=== PATIENT | female | born 1980 | race Caucasian/White ===

== ENCOUNTER 2020-01-09 11:41 | Inpatient (IN) | payer BC ==
--- NOTE | 2020-01-09 11:51 | ED ---
General Adult HPI - General Source: patient, EMS, RN notes reviewed Mode of arrival: EMS Limitations: no limitations <Rodolfo Angeles - Last Filed: 01/09/20 11:56> <Mauricio Jaramillo - Last Filed: 01/09/20 12:22> - General Stated complaint: abd pain Time Seen by Provider: 01/09/20 11:43 - History of Present Illness Initial comments: 39-year-old female presents emergency Department for [facility] as a transfer for an infected right ureteral calculi. Patient states that she's had pain for last couple days states that he was wrapping around her side. She states that she had hot and cold flashes a temp at home. Patient found to be febrile in the emergency department. Patient was given antibiotics [address] shows evidence of a 1 cm proximal right ureter stone. Patient's pain is improved after IV pain meds given by prior hospital. Patient has no history of stones. Patient denies any other complaints at this time no complaints of dysuria or noted hematuria states she does have some frequency. (Rodolfo Angeles) - Related Data Allergies Allergy/AdvReac Type Severity Reaction Status Date / Time Sulfa (Sulfonamide Allergy Rash/Hives Verified 01/09/20 12:12 Antibiotics) Review of Systems ROS Other: All systems not noted in ROS Statement are negative. <Rodolfo Angeles - Last Filed: 01/09/20 11:56> ROS Other: All systems not noted in ROS Statement are negative. <Mauricio Jaramillo - Last Filed: 01/09/20 12:22> ROS Statement: Those systems with pertinent positive or pertinent negative responses have been documented in the HPI. Past Medical History Additional Past Medical History / Comment(s): carpal tunnel, arthritis, fibromyalgia. History of Any Multi-Drug Resistant Organisms: None Reported Past Surgical History: Section Past Psychological History: Anxiety Smoking Status: Never smoker Past Alcohol Use History: None Reported Past Drug Use History: None Reported <Rodolfo Angeles - Last Filed: 01/09/20 11:56> General Exam Limitations: no limitations General appearance: alert, in no apparent distress, other (Diaphoretic) Head exam: Present: atraumatic, normocephalic, normal inspection Eye exam: Present: normal appearance, PERRL, EOMI. Absent: scleral icterus, conjunctival injection, periorbital swelling Respiratory exam: Present: normal lung sounds bilaterally. Absent: respiratory distress, wheezes, rales, rhonchi, stridor Cardiovascular Exam: Present: regular rate, normal rhythm, normal heart sounds. Absent: systolic murmur, diastolic murmur, rubs, gallop, clicks GI/Abdominal exam: Present: soft, normal bowel sounds. Absent: distended, tenderness, guarding, rebound, rigid Back exam: Present: CVA tenderness (R) (Minimal). Absent: CVA tenderness (L) Neurological exam: Present: alert, oriented X3, CN II-XII intact Skin exam: Present: warm, dry, intact, normal color. Absent: rash <Rodolfo Angeles - Last Filed: 01/09/20 11:56> Course <Mauricio Jaramillo - Last Filed: 01/09/20 12:22> Vital Signs 01/09/20 11:43 Temperature 98.1 F Pulse Rate 107 H Respiratory 18 Rate Blood Pressure 120/71 O2 Sat by Pulse 99 Oximetry - Reevaluation(s) Reevaluation #1: 01/09/20 12:20 P.A. supervision: The patient was a transfer from [facility] with a 1 cm renal stone approximately ureter. I did evaluate the patient I did discuss case Dr. Tomlinson the patient will be admitted. Patient will be nothing by mouth after midnight likely go to the OR for stent placement. (Mauricio Jaramillo) Medical Decision Making <Rodolfo Angeles - Last Filed: 01/09/20 11:56> - Medical Decision Making Case discussed with Dr. Tomlinson on-call for urology. Patient will be admitted for stent placement. He did request patient be nothing by mouth after midnight were was placed at this time. (Rodolfo Angeles) Disposition <Rodolfo Angeles - Last Filed: 01/09/20 11:56> <Mauricio Jaramillo - Last Filed: 01/09/20 12:22> Clinical Impression: Calculus of proximal right ureter Narrative: Infected kidney stone (Rodolfo Angeles) Disposition: ADMITTED IP TO THIS HOSP Condition: Fair
[2020-01-09] MEDS ORDERED: HYDROmorphone 1 MG/ML 1 ML SYRINGE IVP PRN (11:57)
[2020-01-09] MEDS ORDERED: NALOXONE 0.4 MG/ML 1 ML VIAL IV PRN (11:57)
[2020-01-09] MEDS ORDERED: ONDANSETRON 4 MG/2 ML VIAL IVP PRN (11:57)
[2020-01-09] MEDS ORDERED: HYDROmorphone 0.5 MG/0.5 ML SYRINGE IVP PRN (11:57)
[2020-01-09] MEDS: SODIUM CHLORIDE 0.9% 1,000 ML IV SCH ×2 (12:08→21:00)
[2020-01-09] MEDS ORDERED: HYDROmorphone (PF) 1 MG/ML ONE (14:52)
[2020-01-09] MEDS ORDERED: PROPOFOL 10 MG/ML 20 ML VIAL IV ONE (14:52)
[2020-01-09] MEDS ORDERED: fentaNYL (PF) 50 MCG/ML 2 ML AMP ONE (14:52)
[2020-01-09] MEDS ORDERED: MIDAZOLAM 2 MG/2 ML VIAL ONE (14:52)
--- NOTE | 2020-01-09 15:00 | P.GSHP ---
History of Present Illness H&P Date: 01/09/20 Chief Complaint: Right pyelonephritis and hydronephrosis The patient is a 39-year-old female transferred from [facility] this morning for evaluation of right hydronephrosis associated with a probable febrile urinary tract infection. The patient says that she first began experiencing right flank pain coupled with nausea and vomiting on 01/06. She said she had a fever with chills and sweats. Her pain, nausea vomiting and chills continued and she presented to the [facility] emergency room where she was evaluated. She had a temperature of 100.7 and her urinalysis suggested a urinary tract infection. BUN/creatinine were 12/1.3. White blood count was 8900. Noncontrast computed tomography scan of the abdomen and pelvis identified a 8 x 12 mm calculus in the proximal right ureter. Nonobstructive calculi were noted in the right and left kidney and measured approximately 2 mm in size. The patient was given a single dose of ceftriaxone and transferred to [facility] for further evaluation. The patient has no previous history of urinary tract infection. She has noted dark colored urine but denies any increased urinary frequency or urgency recently. She has no personal history of urolithiasis but a sister has had kidney stones. - Constitutional Constitutional: Reports chills, Reports fever - EENT Ears, nose, mouth and throat: Reports post-nasal drip - Cardiovascular Cardiovascular: Reports shortness of breath, Denies chest pain, Denies high blood pressure - Respiratory Respiratory: Denies cough, Denies wheezing - Gastrointestinal Gastrointestinal: Reports as per HPI Past Medical History Additional Past Medical History / Comment(s): carpal tunnel, arthritis, fibromyalgia. chronic back pain History of Any Multi-Drug Resistant Organisms: None Reported Past Surgical History: Section Past Anesthesia/Blood Transfusion Reactions: No Reported Reaction Past Psychological History: Anxiety Smoking Status: Never smoker Past Alcohol Use History: None Reported Past Drug Use History: None Reported - Past Family History Mother Family Medical History: Coronary Artery Disease (CAD), Myocardial Infarction (RI) Father Family Medical History: AICD/Pacemaker, GERD/Reflux, GI Bleed Medications and Allergies Home Medications Medication Instructions Recorded Confirmed Type Ibuprofen [Motrin Ib] 800 mg PO Q8H PRN 01/09/20 01/09/20 History Multivitamins, Thera [Multivitamin 1 tab PO DAILY 01/09/20 01/09/20 History (formulary)] Allergies Allergy/AdvReac Type Severity Reaction Status Date / Time Sulfa (Sulfonamide Allergy Rash/Hives Verified 01/09/20 12:12 Antibiotics) Surgical - Exam Vital Signs Temp Pulse Resp BP Pulse Ox 98.1 F 107 H 18 120/71 99 01/09/20 11:43 01/09/20 11:43 01/09/20 11:43 01/09/20 11:43 01/09/20 11:43 - General well developed, well nourished, moderate distress, obese - ENT no hearing loss - Neck no masses, no lymphadectomy - Respiratory normal respiratory effort, clear to auscultation - Cardiovascular Rhythm: regular Abnormal Heart Sounds: no systolic murmur, no diastolic murmur - Abdomen Abdomen: tender (Upper quadrant and right flank), no organomegaly Results - Imaging CT scan - abdomen: image reviewed Assessment and Plan (1) Hydronephrosis of right kidney Narrative/Plan: I reviewed the patient's computed tomography scan. She has an 8 x 12 mm irregular calculus in the proximal right ureter which is producing moderate hydronephrosis. The patient has had chills and sweats and had a fever when seen in the emergency room. Her urinalysis suggested a possible urinary tract infection. Due to the uncertainty in regard to whether or not she has an associated pyelonephritis I believe that cystoscopy with placement of a right double-J catheter to ensure adequate drainage of the right kidney should be performed. A culture from the right renal pelvis will be obtained at that time. I reviewed the procedure with the patient and she has no further questions. Current Visit: Yes Status: Acute Code(s): N13.30 - UNSPECIFIED HYDRONEPHROSIS SNOMED Code(s): 25756628
[2020-01-09] MEDS ORDERED: SODIUM CHLORIDE 0.9% 1,000 ML IV ONE ×2 (15:01→16:00)
--- NOTE | 2020-01-09 15:38 | P.OP ---
Date of Procedure: 01/09/20 Preoperative Diagnosis: Right hydronephrosis and possible right pyelonephritis Postoperative Diagnosis: Right hydronephrosis and possible right pyelonephritis Procedure(s) Performed: Cystoscopy with collection of urine from right renal pelvis and placement of right double-J catheter Implants: 6-Mozambican by 24 cm right double-J catheter Anesthesia: MAC Surgeon: Jhony Tomlinson Estimated Blood Loss (ml): 0 Pathology: other (Urine culture from right renal pelvis) Condition: stable Disposition: PACU Indications for Procedure: The patient is a 39-year-old female with a 3 day history of fever and chills who was discovered to have an obstructive proximal right ureteral calculus with hydronephrosis on a computed tomography scan performed earlier today. The patient's urinalysis suggests a urinary tract infection. Placement of a right double-J catheter is planned to ensure adequate drainage of the right kidney. Description of Procedure: The patient was taken the operating suite where adequate monitored intravenous sedation was given. She was placed in the dorsal lithotomy position with her legs suspended from padded Jose stirrups. The genitalia was prepped with Betadine soap and draped in a sterile fashion. The external genitalia was unremarkable. The patient is currently on her menstrual period. The 22-Mozambican cystoscope sheath with 30 lens was passed through the urethra and into the bladder. A moderate amount of concentrated urine was drained from the bladder. The bladder was examined. The bladder was free of tumor foreign body and diverticulum. The right ureteral orifice was identified. A 0.035 straight Glidewire was advanced through the right ureteral orifice and up to the region of the renal pelvis. Using fluoroscopic guidance an open-ended 6-Mozambican ureteral catheter was advanced over the Glidewire and into the renal pelvis. The Glidewire was withdrawn and 5 mL of turbid appearing urine was aspirated from the right renal pelvis. The Glidewire was reinserted into the open-ended ureteral catheter and then the opened ended ureteral catheter was removed. A 6- Mozambican by 24 cm double-J catheter was then advanced over the Glidewire and positioned fluoroscopically so that the proximal end coiled in the region of the renal pelvis and the distal end coiled in the bladder. The bladder was drained and the cystoscope was withdrawn. The patient tolerated the procedure well and left the operative room awake and in satisfactory condition. She'll be continued on antibiotics pending results of her urine culture.
[2020-01-09] MEDS: ACETAMINOPHEN TAB 325 MG TAB PO PRN (19:28)
--- NOTE | 2020-01-09 19:36 | FL ---
EXAMINATION TYPE: FL guidance operating room DATE OF EXAM: 01/09/2020 FLUOROSCOPY Fluoroscopy time of 13 seconds was used during right ureteral stent insertion. 1 image/s document/s the procedure.
[2020-01-09] MEDS: HYDROcodone/APAP 5-325MG 1 EACH TAB PO PRN (22:57)
[2020-01-10] MEDS: ACETAMINOPHEN TAB 325 MG TAB PO PRN (04:32)
[2020-01-10] MEDS: guaiFENesin 600 MG TABLET.ER PO PRN (05:56)
[2020-01-10] MEDS: SODIUM CHLORIDE 0.9% 1,000 ML IV SCH ×3 (07:25→19:30)
[2020-01-10] MEDS: HYDROcodone/APAP 5-325MG 1 EACH TAB PO PRN ×3 (07:25→19:30)
--- NOTE | 2020-01-10 09:31 | P.PN ---
Progress Note - Text Progress Note Date: 01/10/20 The patient is currently afebrile but did have a temperature of 101.9 last night. She is still somewhat tachycardic. She is tolerating liquids but is not very hungry. She says that her right-sided abdominal and flank pain are improved from yesterday and that her urine is no longer as concentrated appearing. The patient will be continued on ceftriaxone pending results of urine culture.
[2020-01-11] MEDS: ACETAMINOPHEN TAB 325 MG TAB PO PRN ×2 (02:17→09:21)
[2020-01-11] MEDS: guaiFENesin 600 MG TABLET.ER PO PRN (02:18)
[2020-01-11 06:53] LABS: Basophils % (A) 0 %; Eosinophils % (A) 1 %; HCT 34.9 % (34.0-46.0); HGB 11.3 gm/dL (11.4-16.0); Hypochromasia Slight; Lymphocytes # (A) 0.7 k/uL (1.0-4.8); Lymphocytes % (A) 19 %; MCH 29.8 pg (25.0-35.0); MCHC 32.4 g/dL (31.0-37.0); Mean Platelet Volume 9.5; Monocytes # (A) 0.2 k/uL (0-1.0); Monocytes % (A) 6 %; Neutrophils # (A) 2.6 k/uL (1.3-7.7); Neutrophils % (A) 72 %; Platelet Count 135 k/uL (150-450); RBC 3.79 m/uL (3.80-5.40); RDW 14.4 % (11.5-15.5); WBC 3.5 k/uL (3.8-10.6)
[2020-01-11] MEDS: SODIUM CHLORIDE 0.9% 1,000 ML IV SCH (07:26)
--- NOTE | 2020-01-11 15:29 | P.PN ---
Progress Note - Text Progress Note Date: 01/11/20 The patient is afebrile. She is tolerating liquids and her diet but says that overall she does not feel well and is not very hungry. She has been ambulatory. Her white blood count is improved at 3500. Blood culture is no growth. Urine culture is pending. I told the patient that once her urine culture is back she can be switched to an oral antibiotic and discharged. I discussed eventual outpatient ESWL or ureteroscopy with lithotripsy for treatment of her proximal right ureteral calculus but this can be deferred for several weeks. She had no further questions.
[2020-01-11] MEDS: HYDROcodone/APAP 5-325MG 1 EACH TAB PO PRN ×2 (16:06→20:37)
[2020-01-11 23:22] VITALS: RESP 16
[2020-01-12] MEDS: SODIUM CHLORIDE 0.9% 1,000 ML IV SCH (01:02)
[2020-01-12 07:23] VITALS: BP 144/84; PULSE 103; TEMP 100.8
[2020-01-12] MEDS: HYDROcodone/APAP 5-325MG 1 EACH TAB PO PRN (07:29)
--- NOTE | 2020-01-12 09:25 | P.DS ---
Providers Date of admission: 01/10/20 09:30 Expected date of discharge: 01/12/20 Attending physician: Jhony Tomlinson Primary care physician: Roberto Vela - Discharge Diagnosis(es) (1) Hydronephrosis of right kidney The patient was admitted on 01/10/2020 for evaluation of a fever associated with right hydronephrosis secondary to a proximal right ureteral calculus. The patient was started on ceftriaxone in the emergency room. Due to the hydronephrosis it was elected to place a right double-J catheter to allow better drainage from the right kidney and this was performed on 01/10/2020. A culture from the right renal pelvis was obtained at that time and grew E. coli which was sensitive to all antibiotics tested. Blood culture showed no growth. The patient's fever resolved within 36 hours. She was discharged on 01/11 at which time she was afebrile, tolerating a regular diet and fully ambulatory. Her white blood count was 3500 at the time of discharge. The patient will be treated withcipro 500 mg 1 twice a day for 10 days. She will be contacted from my office and will have either ESWL or right ureteroscopy set up sometime in January for treatment of the right ureteral calculus. A KUB he will be be obtained prior to leaving the hospital to determine whether or not ESWL will be a treatment option. Current Visit: Yes Status: Acute Patient Condition at Discharge: Good Plan - Discharge Summary Discharge Rx Participant: Yes New Discharge Prescriptions: New Ciprofloxacin HCl [Cipro] 500 mg PO Q12HR 3 Days #20 tab No Action Multivitamins, Thera [Multivitamin (formulary)] 1 tab PO DAILY Ibuprofen [Motrin Ib] 800 mg PO Q8H PRN PRN Reason: Pain Discharge Medication List Ibuprofen [Motrin Ib] 800 mg PO Q8H PRN 01/09/20 [History] Multivitamins, Thera [Multivitamin (formulary)] 1 tab PO DAILY 01/09/20 [History] Ciprofloxacin HCl [Cipro] 500 mg PO Q12HR 3 Days #20 tab 01/12/20 [Rx] Follow up Appointment(s)/Referral(s): Roberto Vela MD [Primary Care Provider] - 1-2 days Discharge Disposition: HOME SELF-CARE
--- NOTE | 2020-01-12 10:56 | XR ---
EXAMINATION TYPE: XR KUB DATE OF EXAM: 01/12/2020 9:55 AM CLINICAL HISTORY: Kidney stones TECHNIQUE: Upright images of the abdomen and pelvis obtained. COMPARISON: None. FINDINGS: Right-sided double-J ureteral stent seen overlying the region of the right ureteropelvic ju nction and distally over the expected location of the renal pelvis. There is 13 mm of amorphous calci fication overlying the region of the right renal lower pole collecting system, just lateral to the pr oximal stent. Subtle 2 mm density overlying the right renal lower pole shadow may represent the nephr olithiasis on CT comparison. The known left-sided lower pole nephrolithiasis seen on CT comparison is not discretely visualized on current radiographic exam. Nonobstructive bowel gas pattern. No evidenc e of pneumoperitoneum. Osseous structures are intact. Pelvic phlebolith. IMPRESSION: 1. Right-sided ureteral stent proximally overlying the expected UPJ and distally over the expected u rinary bladder. 13 mm of amorphous calcification overlies the region of the right renal pelvis. 2. Questionable visualization of the right lower pole renal calculus and nonvisualization of the lef t renal calculus demonstrated on 01/09/2020 CT comparison.
== END 2020-01-12 11:10 | disposition home or self-care (01) | DRG 661 ==
LOC: EC 11:41 → 1SOBS 11:57 → OBSVTOIN 01-10 09:30
PROVIDERS: ADMIT Urology; ATTEND Urology
PROC: 0T768DZ Dilation of Right Ureter with Intraluminal Device, Via Natural or Artificial Opening Endoscopic (ICD-10-PCS; principal; 2020-01-09 15:00)
DX: N13.6 Pyonephrosis (principal); B96.20 Unspecified Escherichia coli [E. coli] as the cause of diseases classified elsewhere; Z20.828 Contact with and (suspected) exposure to other viral communicable diseases; M79.7 Fibromyalgia; G89.29 Other chronic pain; M54.9 Dorsalgia, unspecified; M19.90 Unspecified osteoarthritis, unspecified site; G56.00 Carpal tunnel syndrome, unspecified upper limb; Z79.899 Other long term (current) drug therapy; Z98.891 History of uterine scar from previous surgery; Z86.59 Personal history of other mental and behavioral disorders; Z88.2 Allergy status to sulfonamides; Z82.49 Family history of ischemic heart disease and other diseases of the circulatory system
CPT/HCPCS: 74018; 85025; 87070; 87075; 87077; 87186; 87205; 99285

== ENCOUNTER 2023-07-01 06:03 | Day surgery (SDC) | payer BC ==
[~2023-07-01 06:03] MED LIST: ACETAMINOPHEN TAB 500 MG TAB PO PRN; DEXAMETHASONE SOD PHOSPHATE 4 MG/ML 1 ML VIAL IV ONE; HEPARIN SODIUM,PORCINE 5,000 UNIT/ML 1 ML VIAL SQ PRN; LACTATED RINGERS 1,000 ML IV SCH; ONDANSETRON 4 MG/2 ML VIAL IVP ONE
[2023-07-01] MEDS ORDERED: HYDROmorphone 0.5 MG/0.5 ML SYRINGE IVP PRN (07:00)
[2023-07-01] MEDS ORDERED: MIDAZOLAM 2 MG/2 ML VIAL IVP ONE (07:08)
[2023-07-01 07:15] VITALS: RESP 16
[2023-07-01] MEDS ORDERED: HYDROmorphone (PF) 1 MG/ML ONE (07:31)
[2023-07-01] MEDS ORDERED: KETOROLAC 30 MG/ML 1 ML VIAL ONE (07:31)
[2023-07-01] MEDS ORDERED: PROPOFOL 10 MG/ML 20 ML VIAL IV ONE (07:31)
[2023-07-01] MEDS ORDERED: NEOSTIGMINE 1 MG/ML 10 ML VIAL ONE (07:31)
[2023-07-01] MEDS ORDERED: GLYCOPYRROLATE 0.2 MG/ML 2 ML VIAL ONE (07:31)
[2023-07-01] MEDS ORDERED: fentaNYL (PF) 50 MCG/ML 2 ML AMP ONE (07:31)
[2023-07-01] MEDS ORDERED: ROCURONIUM 10 MG/ML (5 ML VIAL) IV ONE (07:31)
[2023-07-01] MEDS ORDERED: SUCCINYLCHOLINE CHLORIDE 200 MG/10 ML VIAL IV ONE (07:31)
[2023-07-01] MEDS ORDERED: BUPIVACAINE (PF) 0.25% 30 ML VIAL SQ ONE (07:59)
--- NOTE | 2023-07-01 08:43 | P.OP ---
Date of Procedure: 07/01/23 Preoperative Diagnosis: Cholelithiasis Cholecystitis Postoperative Diagnosis: Cholelithiasis Cholecystitis Procedure(s) Performed: Laparoscopic cholecystectomy Anesthesia: SEVERINO Surgeon: Jean Fitzgerald Estimated Blood Loss (ml): 10 Pathology: other (Gallbladder) Condition: stable Disposition: PACU Description of Procedure: The patient was placed on the operating table. The patient received a general endotracheal tube anesthesia. The patients abdomen was prepped and draped in the usual sterile fashion. Through an infraumbilical stab incision, the fascia of the anterior abdominal wall was grasped with a pair of Kochers and then the Veress needle was placed in the peritoneal cavity. Position of the Veress needle was confirmed with positive drop test. The abdomen was then insufflated. After adequate insufflation, the 10 mm trocar was placed in the peritoneal cavity. Following this the laparoscope was placed in the peritoneal cavity. The patient was placed in the head-up, right side up position and then a 5 mm trocar was placed in the right lateral and right subcostal position under direct visualization. A 8 mm trocar was placed in the epigastric position. The gallbladder was grasped in the fundus and infundibulum. Traction on the gallbladder was placed in the lateral and the cephalad positions. The triangle of Calot was visualized.. The cystic duct was bluntly dissected until the union of the cystic duct and common bile duct w as seen. A critical view of safety was achieved. The cystic duct was then divided and sealed with the Harmonic scissors. A PDS Endoloop was then placed throughout the cystic duct stump. The cystic artery divided and sealed with the Harmonic scissors. The gallbladder was then removed from the liver bed using Harmonic scissors. The gallbladder was then extracted through the epigastric port site. Operative field was checked for any bleeding spots and Harmonic scissors was used to coagulate the liver bed. The abdomen was irrigated. The trocars were removed. The skin was closed using interrupted 3-0 Vicryl suture. Dermabond dressing were applied. The patient tolerated the procedure well.
[2023-07-01 08:57] VITALS: TEMP 97
[2023-07-01 09:49] VITALS: BP 144/87; PULSE 80
== END 2023-07-01 10:19 | disposition home or self-care (01) ==
LOC: OR 06:03
PROVIDERS: ATTEND Surgery
DX: K80.10 Calculus of gallbladder with chronic cholecystitis without obstruction (principal); F41.9 Anxiety disorder, unspecified; F32.A Depression, unspecified; Z79.899 Other long term (current) drug therapy; Z88.2 Allergy status to sulfonamides
CPT/HCPCS: 47562; 81025; 88304; J2250; J0330; J1644; J1100; J2710; J0690; J2405; J3010; J1885; J1170; J2704; J0665

== ENCOUNTER → 2024-03-30 | Outpatient (CLI) | payer BC ==
--- NOTE | 2024-03-31 09:27 | MM ---
Reason for Exam: Screening (asymptomatic). Last mammogram was performed 1 year(s) and 1 month(s) ago. Patient History: Menarche at age 10. First Full-Term at age 21. Risk Values: Flor 5 year model risk: 0.7%. NCI Lifetime model risk: 8.6%. Prior Study Comparison: 02/28/2023 Bilateral MG 3D screening mammo w/cad, [facility]. Tissue Density: The breasts are heterogeneously dense, which may obscure small masses. Findings: Analyzed By CAD. There is no suspicious group of microcalcifications or new suspicious mass in either breast. Overall Assessment: Negative, BI-RAD 1 Management: Screening Mammogram of both breasts in 1 year. . Patient should continue monthly self-breast exams. A clinical breast exam by your physician is recommended on an annual basis. This exam should not preclude additional follow-up of suspicious palpable abnormalities. Note on Flor scores and lifetime risk: 1. A Flor score greater than 3% is considered moderate risk. If this is the case, consider specialist referral to assess eligibility for a risk reducing agent. 2. If overall lifetime risk for the development of breast cancer is 20% or higher, the patient may qualify for future screening with alternating mammogram and breast MRI. [facility], , 03/31/2024 9:25 AM. Electronically signed and approved by: Elliott Valentin M.D. Radiologis
== END | disposition home or self-care (01) ==
LOC: RADMAMWWP 07:48
PROVIDERS: ATTEND Obstetrics & Gynecology
DX: Z12.31 Encounter for screening mammogram for malignant neoplasm of breast
CPT/HCPCS: 77063; 77067

== ENCOUNTER → 2024-04-22 | Outpatient (CLI) | payer BC ==
--- NOTE | 2024-04-22 10:42 | CT ---
EXAMINATION TYPE: CT sinus wo con DATE OF EXAM: 04/22/2024 COMPARISON: None CLINICAL INDICATION: Female, 43 years old with history of J32.0 CHRONIC MAXILLARY SINUSITIS; PHH, sin us issues TECHNIQUE: CT scan of the sinuses is performed without contrast, axial images are obtained, coronal r eformatted images are also reviewed. CT DLP: 482 mGycm Automated exposure control for dose reduction was used. FINDINGS: There is a large mucous retention cyst or polyp in the right maxillary sinus. The ostiomeatal complex es are patent bilaterally. There are no air-fluid levels suggest acute sinusitis. The frontal sinuses are hypoplastic. The intraorbital contents appear normal and symmetric. Middle ear cavities and mastoid air cells are well aerated. There are no osseous lesions. IMPRESSION: Mucous retention cyst or polyp in the right maxillary sinus. No other significant abnormality seen. [facility], , 04/22/2024 10:39 AM
== END | disposition home or self-care (01) ==
LOC: RADCTMAIN 09:57
PROVIDERS: ATTEND Otolaryngology
CPT/HCPCS: 70486

== ENCOUNTER → 2024-12-03 | Outpatient (CLI) | payer BC ==
--- NOTE | 2024-12-03 17:54 | MR ---
EXAMINATION TYPE: MR lumbar spine wo con DATE OF EXAM: 12/03/2024 10:37 AM COMPARISON: None. CLINICAL INDICATION: Female, 44 years old with history of M54.5 lumbar pain, Back pain for a few year s TECHNIQUE: Multiplanar, multisequence images of the lumbar spine were acquired. IV Contrast: mL (None, if empty) FINDINGS: Cord ends at the L1-L2 level. L5-S1: No focal disc herniation or significant disc bulge. No spinal canal stenosis. Neural foramen are patent. Mild facet hypertrophy is present L4-L5: No focal disc herniation or significant disc bulge. No spinal canal stenosis. Neural foramen are patent. Mild facet hypertrophy is present. L3-L4: No focal disc herniation or significant disc bulge. No spinal canal stenosis. Neural foramen are patent. L2-L3: No focal disc herniation or significant disc bulge. No spinal canal stenosis. Neural foramen are patent. L1-L2: No focal disc herniation or significant disc bulge. No spinal canal stenosis. Neural foramen are patent. T12-L1: No focal disc herniation or significant disc bulge. No spinal canal stenosis. Neural forame n are patent. IMPRESSION: 1. No significant disc bulge or focal disc herniations. No acute osseous abnormality evident. [facility], , 12/03/2024 5:52 PM
== END | disposition home or self-care (01) ==
LOC: RADMRIMAIN 09:26
PROVIDERS: ATTEND Orthopaedic Surgery
DX: M47.26 Other spondylosis with radiculopathy, lumbar region (principal)
CPT/HCPCS: 72148